=== PATIENT | female | born 1965 | race Hispanic/Latino ===

== ENCOUNTER 2016-11-08 17:19 | Emergency (ER) | payer OTHER ==
[2016-11-08 19:05] VITALS: BP 128/78
--- NOTE | 2016-11-08 21:12 | Emergency Department Report ---
ED Fall HPI - General Chief Complaint: Fall Stated Complaint: FELL/RT ELBOW/RT SIDE PAIN Time Seen by Provider: 11/08/16 20:19 Source: patient Mode of arrival: Ambulatory - History of Present Illness Initial Comments: Pt is a 51 year old female presenting s/p fall 4 days ago. Tripped and fell backwards landing on R scapula and elbow. Denies head injury or LOC. States she took some leftover pain meds at home which helped. -: Sudden, days(s) (4) Fall From: standing When Fall Occurred: # days [employer]IL [employer] (4) Fall Witnessed: no Place Fall Occurred: home Loss of Consciousness: none Prolonged Down Time?: no Symptoms Prior to Fall: none Location: other Location - Extremities: Right: Shoulder, Elbow Severity: moderate Severity scale (0 -10): 5 Quality: aching Context: tripped/slipped Associated Symptoms: denies - Related Data Home Medications Medication Instructions Recorded Confirmed Last Taken Escitalopram [Lexapro] 10 mg PO DAILY 05/17/16 05/17/16 Unknown Propranolol [Inderal] 40 mg PO DAILY 05/17/16 05/17/16 Unknown Previous Rx's Medication Instructions Recorded Last Taken Type Ibuprofen [Motrin 800 MG tab] 800 mg PO Q8HR PRN #30 tablet 05/18/16 Unknown Rx Oxycodone HCl/Acetaminophen 1 each PO Q6HR PRN #8 tablet 05/18/16 Unknown Rx [Percocet 10/325 mg] Acetaminophen/Codeine [Tylenol #3] 1 tab PO Q6H PRN #12 tab 11/08/16 Unknown Rx Cyclobenzaprine [Flexeril 10 MG 10 mg PO TID PRN #15 tablet 11/08/16 Unknown Rx TAB] Naproxen [Naprosyn] 500 mg PO BID #20 tablet 11/08/16 Unknown Rx Allergies Allergy/AdvReac Type Severity Reaction Status Date / Time No Known Allergies Allergy Verified 11/08/16 18:58 ED Review of Systems ROS: Stated complaint: FELL/RT ELBOW/RT SIDE PAIN Other details as noted in HPI Comment: All other systems reviewed and negative Constitutional: denies: chills, fever Eyes: denies: eye pain, eye discharge, vision change ENT: denies: ear pain, throat pain Respiratory: denies: cough, shortness of breath, wheezing Cardiovascular: denies: chest pain, palpitations Endocrine: no symptoms reported Gastrointestinal: denies: abdominal pain, nausea, diarrhea Genitourinary: denies: urgency, dysuria, discharge Musculoskeletal: arthralgia, myalgia. denies: back pain, joint swelling Skin: denies: rash, lesions Neurological: denies: headache, weakness, paresthesias Psychiatric: denies: anxiety, depression Hematological/Lymphatic: denies: easy bleeding, easy bruising ED Past Medical Hx - Surgical History Additional Surgical History: 3 c-sections - Social History Smoking Status: Never Smoker Substance Use Type: Alcohol - Medications Home Medications: Home Medications Medication Instructions Recorded Confirmed Last Taken Type Escitalopram [Lexapro] 10 mg PO DAILY 05/17/16 05/17/16 Unknown History Propranolol [Inderal] 40 mg PO DAILY 05/17/16 05/17/16 Unknown History Ibuprofen [Motrin 800 MG tab] 800 mg PO Q8HR PRN #30 tablet 05/18/16 Unknown Rx Oxycodone HCl/Acetaminophen 1 each PO Q6HR PRN #8 tablet 05/18/16 Unknown Rx [Percocet 10/325 mg] Acetaminophen/Codeine [Tylenol #3] 1 tab PO Q6H PRN #12 tab 11/08/16 Unknown Rx Cyclobenzaprine [Flexeril 10 MG 10 mg PO TID PRN #15 tablet 11/08/16 Unknown Rx TAB] Naproxen [Naprosyn] 500 mg PO BID #20 tablet 11/08/16 Unknown Rx ED Physical Exam - General Limitations: No Limitations General appearance: alert, in no apparent distress - Head Head exam: Present: atraumatic, normocephalic - Eye Eye exam: Present: normal appearance, PERRL, EOMI - ENT ENT exam: Present: normal exam, mucous membranes moist - Neck Neck exam: Present: normal inspection, full ROM. Absent: tenderness - Respiratory Respiratory exam: Present: normal lung sounds bilaterally. Absent: respiratory distress, wheezes - Cardiovascular Cardiovascular Exam: Present: regular rate, normal rhythm. Absent: systolic murmur, diastolic murmur, rubs, gallop - GI/Abdominal GI/Abdominal exam: Present: soft, normal bowel sounds. Absent: distended, tenderness, guarding, rebound - Extremities Exam Extremities exam: Present: normal inspection, other (Mild tenderness to R olecranon and R scapula. Full ROM, CMS intact. No swelling. ) - Back Exam Back exam: Present: normal inspection - Neurological Exam Neurological exam: Present: alert, oriented X3, normal gait, reflexes normal. Absent: motor sensory deficit - Psychiatric Psychiatric exam: Present: normal affect, normal mood - Skin Skin exam: Present: warm, dry, intact, normal color. Absent: rash ED Course Vital Signs 11/08/16 18:58 Temperature 98.0 F Pulse Rate 65 Respiratory 18 Rate Blood Pressure 128/78 O2 Sat by Pulse 100 Oximetry - Reevaluation(s) Reevaluation #1: 11/08/16 21:12 NAD, stable for d/c. ED Medical Decision Making - Radiology Data Radiology results: image reviewed interpreted by me: naf - Medical Decision Making Benign exam, imaging appears WNL. Will give sling and ortho referral. - Differential Diagnosis strain, sprain, fx Critical care attestation.: If time is entered above; I have spent that time in minutes in the direct care of this critically ill patient, excluding procedure time. ED Disposition Clinical Impression: Contusion of right elbow Qualifiers: Encounter type: initial encounter Qualified Code(s): S50.01XA - Contusion of right elbow, initial encounter Contusion of right scapular region Qualifiers: Encounter type: initial encounter Qualified Code(s): S40.011A - Contusion of right shoulder, initial encounter Disposition: DISCHARGED TO HOME OR SELFCARE Is pt being admited?: No Condition: Good Instructions: Contusion in Adults (ED), Muscle Strain (ED) Prescriptions: Acetaminophen/Codeine [Tylenol #3] 1 tab PO Q6H PRN #12 tab PRN Reason: Pain Cyclobenzaprine [Flexeril 10 MG TAB] 10 mg PO TID PRN #15 tablet PRN Reason: Muscle Spasm Naproxen [Naprosyn] 500 mg PO BID #20 tablet Referrals: ADELA CABRERA [Other] - 3-5 Days TREASURE ESCALANTE MD [Staff Physician] - 3-5 Days Time of Disposition: 21:15
--- NOTE | 2016-11-09 08:10 | XRay Report ---
RIGHT SHOULDER, 3 VIEWS History: Shoulder pain Findings: Bone mineralization is normal. No acute osseous findings or joint pathology is appreciated. The soft tissues are unremarkable. Impression: Unremarkable right shoulder films.
--- NOTE | 2016-11-09 08:11 | XRay Report ---
RIGHT SCAPULA: History: Pain. The bony architecture is intact without evidence of fracture or dislocation. No significant soft tissue abnormality is seen. IMPRESSION: Right scapula within normal limits.
--- NOTE | 2016-11-09 09:06 | XRay Report ---
RIGHT ELBOW, 3 views: History: Right elbow pain. The bony architecture is intact without evidence of fracture or dislocation. No significant soft tissue abnormality is seen. IMPRESSION: Normal right elbow.
== END 2016-11-08 22:12 | disposition home or self-care (01) ==
LOC: ED 17:19
DX: S50.01XA Contusion of right elbow, initial encounter (principal); S40.011A Contusion of right shoulder, initial encounter; Z98.890 Other specified postprocedural states; Z79.1 Long term (current) use of non-steroidal anti-inflammatories (NSAID); Z79.899 Other long term (current) drug therapy; W01.0XXA Fall on same level from slipping, tripping and stumbling without subsequent striking against object, initial encounter; Y93.89 Activity, other specified; Y99.8 Other external cause status; Y92.009 Unspecified place in unspecified non-institutional (private) residence as the place of occurrence of the external cause